=== PATIENT | male | born 1980 | race Caucasian/White ===

== ENCOUNTER 2024-03-10 23:26 | Observation (INO) | payer OTHER, SELFPAY ==
--- NOTE | ~2024-03-10 | US_ITS ---
EXAMINATION: US retroperitoneal duplex ltd DATE: 03/12/2024 12:36 INDICATION: Hypertension. TECHNIQUE: Multiple grayscale, color Doppler, and pulsed Doppler images of the kidneys and renal diamond shadia were obtained. COMPARISON: None. FINDINGS: The aorta peak systolic velocity is 82 cm/s. Right kidney measures 11.1 x 5.4 x 5.7 cm . The right re nal artery peak systolic velocity is 61 cm/s in the proximal segment, 48 cm/s in the mid segment, and 90 cm/s in the distal segment. Left kidney measures 12.3 x 6.2 x 5.7 cm. The left renal artery peak systolic velocity is 54 cm/s in the mid segment and 77 cm/s in the distal segment. IMPRESSION: 1. No Doppler evidence of renal artery stenosis. Reviewed, dictated and finalized at location A. [facility]ALER
--- NOTE | ~2024-03-10 | XR_ITS ---
Portable chest x-ray Comparison: 05/25/2014 Clinical History: Wheezing, hypertension Findings: Lungs are clear, without focal consolidation or pleural effusion. Cardiomediastinal silho uette is stable. Bones and soft tissues are unremarkable. Impression: Normal chest. Reviewed, dictated and finalized at [facility]. RVISOR OF RESEARCH Impression: Normal chest.
[2024-03-10 23:34] VITALS: BP 244/125; PULSE 100; RESP 16; TEMP 36.5; O2SAT 99
--- NOTE | 2024-03-10 23:41 | ECG_ITS ---
Test Date: 2024-03-10 23:45:06 Measurements Intervals [place] Rate: 88 P: 51 PA: 136 QRS: 38 QRSD: 93 T: 39 QT: 382 QTc: 463 Interpretive Statements SINUS RHYTHM NONSPECIFIC T-WAVE ABNORMALITY No previous ECG available for comparison Electronically Signed On 03-11-2024 12:14:19 WING COMMANDER by Juan Carlos Baker M.D.
[2024-03-11] VITALS (21 sets, daily range): BP systolic 161–215; BP diastolic 94–114; PULSE 77–123; RESP 16–20; TEMP 36.6–36.9; O2SAT 95–99; BMI 39.6
[2024-03-11 00:06] LABS: Basophils Absolute Auto 0.1 K/mm3 (0.0-0.1); Basophils Percent Auto 0.7 % (0.2-1.2); Eosinophils Absolute Auto 0.3 K/mm3 (0-0.3); Eosinophils Percent Auto 2.6 % (0-4.4); Hemoglobin 16.2 g/dL (14.0-18.0); Immature Granulocyte Absolute 0.06 K/mm3 (0.00-0.031); Immature Granulocyte Percent A 0.6 % (0-0.5); Lymphocytes Absolute Auto 5.43 K/mm3 (0.9-3.2); Lymphocytes Percent Auto 50.5 % (18.3-44.2); Mean Corpuscular HGB Conc 35.2 g/dl (32-36); Mean Corpuscular Hemoglobin 29.7 pg (26-34); Mean Corpuscular Volume 84.2 fl (80-100); Mean Platelet Volume 8.9 fl (7.4-10.4); Monocytes Percent Auto 9.1 % (2.6-8.5); Neutrophils Absolute Auto 3.9 K/mm3 (1.3-6.7); Neutrophils Percent Auto 36.5 % (45.5-73.1); Platelet Count Result 219 k/mm3 (150-375); Red Blood Count 5.46 M/mm3 (4.6-6.20); Red Cell Distribution Width 12.3 % (11.5-14.5); White Blood Count 10.8 K/mm3 (4.5-10.0)
[2024-03-11 00:20] LABS: Prothrombin Time 13.8 Seconds (11.1-14.7)
[2024-03-11 00:21] LABS: Partial Thromboplastin Time 32.9 Seconds (22.3-36.8)
--- NOTE | 2024-03-11 00:22 | ED_ITS ---
HPI - SOB/Dyspnea General Chief Complaint: Upper Respiratory Infection Stated Complaint: congestion, high blood pressure Time Seen by Provider: 03/10/24 23:41 Source: patient Mode of arrival: ambulatory Limitations: no limitations History of Present Illness HPI Narrative: This is a 43 year old male that presents to the ER for elevated blood pressure. Reports he has been ill with cold symptoms over the last week. Reports cough, congestion. Reports the last 2 nights he has felt short of breath while lying flat. He took his blood pressure and it was elevated which prompted him to be seen. He does have history of hypertension, but has not been on his blood pressure mediation for years. Denies chest pain. Related Data Allergies Allergy/AdvReac Type Severity Reaction Status Date / Time No Known Allergies Allergy Verified 03/10/24 23:28 Review of Systems 2 Review of Systems: CONSTITUTIONAL: Denies fever ENT: Reports congestion CARDIOVASCULAR: Denies chest pain, or edema. RESPIRATORY: Reports cough and dyspnea. All systems reviewed & are unremarkable except as noted in HPI and below PMFSH Past Medical History Medical History (Updated 03/11/24 @ 02:38 by Grace Somers PA-C) History of hypertension Social History Social History (Updated 03/11/24 @ 00:40 by Grace Somers PA-C) Substance use: never Exam 2 Narrative: GENERAL: Well-appearing, well-nourished, and in no acute distress. HEAD: Normocephalic, atraumatic. EYES: EOMI. ENT: Nares clear, no rhinorrhea or epistaxis. Mucous membranes moist. Oropharynx without tonsillar hypertrophy exudate or other lesions. Bilateral cerumen impaction NECK: Supple. No adenopathy or masses. CHEST: No respiratory distress. Inspiratory wheezing. No rales or rhonchi HEART: Regular rate and rhythm. No murmur heard. Normal peripheral pulses. EXTREMITIES: Normal range of motion. No edema. SKIN: Warm, dry, no rash. NEURO: No focal deficits. Alert and oriented x3. PSYCH: Normal mood and affect Course Course Emergency Course: patient updated on workup and recommendation for admission Consultations Consultation #1: Spoke with hospitalist about patient and workup who accepts admission Date: 03/11/24 Vital Signs Vital signs: Vital Signs Temperature 97.7 F 03/10/24 23:34 Pulse Rate 100 03/10/24 23:34 Respiratory Rate 16 12/19/24 23:34 Blood Pressure 244/125 H 03/10/24 23:34 Pulse Oximetry 99 03/10/24 23:34 Oxygen Delivery Room Air 03/10/24 23:34 Temperature 97.7 F 03/10/24 23:34 Pulse Rate 95 03/11/24 01:45 Respiratory Rate 18 03/11/24 01:45 Blood Pressure 208/112 H 03/11/24 01:45 Pulse Oximetry 97 03/11/24 01:45 Oxygen Delivery Room Air 03/10/24 23:34 MDM - SOB/Dyspnea MDM Narrative Medical decision making narrative: Patient presents to the emergency department for elevated blood pressure and shortness of breath. Blood pressure elevated to 240 systolic upon arrival. This has slowly down trended. Patient was given a dose of hydralazine. Blood pressure now is 180s systolic. CBC with mild leukocytosis to 10.8. Metabolic panel with mild hypokalemia, patient's potassium was replaced. Influenza, RSV and COVID screens are negative. patient updated on workup and recommendation for admission. Spoke with hospitalist about patient and workup who accepts admission Differential Diagnosis Differential diagnosis: Likely congestive heart failure, community acquired pneumonia, asthma with exacerbation and pulmonary embolism Lab Data Attestation: I reviewed the patient's lab results. 03/10/24 23:55 03/10/24 23:55 Labs: Lab Results 03/10/24 03/10/24 Range/Units 23:54 23:55 WBC 10.8 H (4.5-10.0) K/mm3 RBC 5.46 (4.6-6.20) M/mm3 Hgb 16.2 (14.0-18.0) g/dL Hct 46.0 (42.0-52.0) % MCV 84.2 (80-100) fl MCH 29.7 (26-34) pg MCHC 35.2 (32-36) g/dl RDW 12.3 (11.5-14.5) % Plt Count 219 (150-375) k/mm3 MPV 8.9 (7.4-10.4) fl Immature Gran % (Auto) 0.6 H (0-0.5) % Neut % (Auto) 36.5 L (45.5-73.1) % Lymph % (Auto) 50.5 H (18.3-44.2) % Mckinley % (Auto) 9.1 H (2.6-8.5) % Eos % (Auto) 2.6 (0-4.4) % Baso % (Auto) 0.7 (0.2-1.2) % Lymph # (Auto) 5.43 H (0.9-3.2) K/mm3 Mckinley # (Auto) 1.0 H (0.1-0.6) K/mm3 Eos # (Auto) 0.3 (0-0.3) K/mm3 Baso # (Auto) 0.1 (0.0-0.1) K/mm3 Abs Immat Gran (auto) 0.06 H (0.00-0.031) K/mm3 Absolute Neuts (auto) 3.9 (1.3-6.7) K/mm3 Absolute Nucleated RBC 0.000 (0.0-0.012) K/mm3 Nucleated RBC % 0.0 (0.0-0.2) % PT 13.8 (11.1-14.7) Seconds INR 1.0 APTT 32.9 (22.3-36.8) Seconds D-Dimer < 0.27 (<0.48) ug/mL Sodium 137 (137-145) mmol/L Potassium 3.3 L (3.4-5.0) mmol/L Chloride 101 (98-107) mmol/L Carbon Dioxide 29 (22-30) mmol/L Anion Gap 7 (4-12) mmol/L BUN 16 (9-20) mg/dL Creatinine 0.80 (0.7-1.3) mg/dL Estim Creat Clear Calc Not Reportable Estimated GFR > 60 (59 - ) Glucose 156 H (65-110) mg/dL Calcium 9.3 (8.4-10.2) mg/dL Magnesium 2.0 (1.6-2.3) mg/dL Total Bilirubin 0.9 (0.2-1.3) mg/dL AST 45 (17-59) U/L ALT 48 (6-50) U/L Alkaline Phosphatase 67 (38-126) U/L Troponin I < 0.012 (0.000-0.034) ng/mL NT-Pro-B Natriuret Pep 20 (19.9-100) pg/mL Total Protein 9.0 H (6.3-8.2) g/dL Albumin 4.7 (3.5-5.1) g/dL Lipase 97 (23-300) U/L Influenza A (RT-PCR) Negative (Negative) Influenza B (RT-PCR) Negative (Negative) RSV (RT-PCR) Negative (Negative) SARS-CoV-2 RNA (RT-PCR) Negative (Negative) Imaging Data My impression: Chest x-ray: Cardiomegaly ECG Data EKG #1: ECG completion date: 03/11/24 EKG Interpretation: normal rate, sinus rhythm, no ST changes and normal QT Critical Care Time Critical Care Time Critical Care Time: Yes Total Critical Care Time: 35 Discharge Plan Discharge Clinical Impression: Hypertensive urgency, Hypokalemia Patient Disposition: Still a Patient Condition: Serious Patient Language: German Follow-up/Referrals: PHYSICIAN,LEAD GENERATION MARKETING MANAGER [Primary Care Provider] -
[2024-03-11] MEDS: IPRATROPIUM 0.5 MG/ALBUTEROL SULFATE 2.5 MG AMPUL.NEB 3 ML INHALATION (00:40)
[2024-03-11 00:49] LABS: Influenza A QL RT-PCR Negative (Negative); Influenza B QL RT-PCR Negative (Negative); RSV RNA, RT-PCR Negative (Negative); SARS-CoV-2 RNA PCR Negative (Negative)
[2024-03-11] MEDS: predniSONE 20 MG TABLET 60 MG PO (00:56)
[2024-03-11 01:00] LABS: Alanine Aminotransferase 48 U/L (6-50); Albumin Level 4.7 g/dL (3.5-5.1); Alkaline Phosphatase 67 U/L (38-126); Anion Gap 7 mmol/L (4-12); Aspartate Amino Transferase 45 U/L (17-59); Bilirubin,Total 0.9 mg/dL (0.2-1.3); Blood Urea Nitrogen 16 mg/dL (9-20); Calcium 9.3 mg/dL (8.4-10.2); Carbon Dioxide 29 mmol/L (22-30); Chloride 101 mmol/L (98-107); Estimated Glomerular Filt Rate > 60; Glucose 156 mg/dL (65-110); Lipase 97 U/L (23-300); Potassium 3.3 mmol/L (3.4-5.0); Sodium 137 mmol/L (137-145)
[2024-03-11 01:11] LABS: NT Pro B Type Natriuretic Pept 20 pg/mL (19.9-100); Troponin I < 0.012 ng/mL (0.000-0.034)
[2024-03-11 01:18] LABS: D Dimer < 0.27 ug/mL (<0.48)
[2024-03-11] MEDS: POTASSIUM CHLORIDE 20 MEQ ER TABLET 40 MEQ PO (01:42)
[2024-03-11] MEDS: hydrALAZINE HCL 20 MG/ML VIAL 10 MG IV PUSH ×3 (01:43→17:20)
--- NOTE | 2024-03-11 02:43 | ECG_ITS ---
Test Date: 2024-03-11 02:45:44 Measurements Intervals [place] Rate: 95 P: 38 ID: 140 QRS: 43 QRSD: 89 T: 28 QT: 371 QTc: 467 Interpretive Statements SINUS RHYTHM NONSPECIFIC T-WAVE ABNORMALITY Compared to ECG 03/10/2024 23:45:06 No significant changes Electronically Signed On 03-11-2024 12:20:07 DOUGHNUT MACHINE OPERATOR HELPER by Juan Carlos Baker M.D.
[2024-03-11 03:07] LABS: Troponin I < 0.012 ng/mL (0.000-0.034)
--- NOTE | 2024-03-11 05:08 | ADMGEN ---
This patient, Steven Elmore, was admitted to IMU Room 211-01. Patient/family oriented to hospital policies and general routines including ID bracelet, bed and alarms, visiting hours, pain management, procedures, bathroom and other care routines, personal items, smoking policy, room service/diet, and visiting hours. Information on how to activate the Rapid Response Team has been discussed. Patient/Family are encouraged to report perceived risks to care and to ask questions if they do not understand what they are told or what they should do.
[2024-03-11 07:02] LABS: Troponin I < 0.012 ng/mL (0.000-0.034)
[2024-03-11] MEDS: lisinopriL 20 MG TABLET PO (08:22)
--- NOTE | 2024-03-11 09:16 | PM.IMHP ---
H&P: HPI History of Present Illness Date/Time: 03/11/24 09:16 Chief Complaint: upper resp infection, sob, high blood pressure Narrative: 43 year old male that presents to the ER for elevated blood pressure. Reports he has been ill with cold symptoms over the last week. Reports cough, congestion. Reports the last 2 nights he has felt short of breath while lying flat. He took his blood pressure and it was elevated which prompted him to be seen. He does have history of hypertension, but has not been on his blood pressure mediation for years. Denies chest pain. In ed: his systolic BP was 240. Patient was given a dose of hydralazine. Blood pressure now is 180s systolic. CBC with mild leukocytosis to 10.8. Metabolic panel with mild hypokalemia, patient's potassium was replaced. Influenza, RSV and COVID screens are negative. EKG was completed in ED. Chest xray-unremarkable. 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 Walk occasionally but nothing consistent. Drinks alcohol-very seldom. Eats out on occasion but tries to cook more at home, doesnot add salt when he cooks. Doesnot smoke, doesnot do any other drugs. Both parents have HTN, mother had medullary thyroid ca- so pt would npot be a candidate for GLP1 if prediabetic/diabetic. His previous pcp left [facility] and he didot have follow up in a while. He used to take HCTZ while back and once covid happed, lost touch with his pcp and ran out of his refills, so quit taking medication. reports occASIONAL HEADACHES AND BLURRY VISION. He gets anxiouys easily. Review of Systems Review of Systems: All systems reviewed & are unremarkable except as noted in HPI and below [facility] Past Medical History Medical History (Updated 03/11/24 @ 15:37 by Nicole Cornejo APRN) History of hypertension Social History Social History (Updated 03/11/24 @ 00:40 by Grace Somers PA-C) Smoking status: Never smoker Alcohol intake: never Substance use: never Substance use type: does not use Do You Feel Safe in your Home?: Yes Lack of Transportation: No Lack of Food: Never True Current Housing: I Have Housing Concerned About Future Housing: No Difficulty Paying Gas/Electric Bills: No Difficulty Paying for Meds: No Currently Unemployed: No Education: Bachelor's Degree Difficulty w/ Childcare or Family Care: No Spiritual care concerns: No Meds Home Medications and Allergies Home Medications ?Medication ?Instructions ?Recorded ?Confirmed ?Type No Home Medications 03/11/24 03/11/24 History Allergies Allergy/AdvReac Type Severity Reaction Status Date / Time No Known Allergies Allergy Verified 03/10/24 23:28 Vital Signs Vital Signs - 24 hr 03/10/24 23:34 03/11/24 00:07 03/11/24 00:40 Temperature 97.7 F Pulse Rate 100 93 86 Respiratory Rate 16 20 18 Blood Pressure 244/125 H 215/108 H Pulse Oximetry 99 97 Oxygen Delivery Room Air 03/11/24 00:46 03/11/24 01:45 03/11/24 04:07 Temperature Pulse Rate 94 95 84 Respiratory Rate 20 18 16 Blood Pressure 208/112 H 166/94 H Pulse Oximetry 97 95 Oxygen Delivery 03/11/24 04:08 03/11/24 04:19 03/11/24 05:10 Temperature Pulse Rate 87 95 Respiratory Rate 16 Blood Pressure Pulse Oximetry 96 96 Oxygen Delivery Room Air 03/11/24 05:11 03/11/24 05:15 03/11/24 08:00 Temperature 98.1 F 98.1 F Pulse Rate 92 77 97 Respiratory Rate 16 20 18 Blood Pressure 188/114 H 214/108 H Pulse Oximetry 96 97 99 Oxygen Delivery Room Air Exam Const: General: comfortable Eyes: General: appearance normal, both eyes and all related structures Resp: Effort & Inspection: normal respiratory effort Cardio: Rate: regular rate Rhythm: regular rhythm GI: GI Palp: Yes Soft to palpation Auscultation: normal bowel sounds Skin: General skin exam: normal color Neuro: Speech: normal speech Motor exam (neuro): 5/5 motor strength present throughout Sensory Exam: normal sensation Extrem: General: normal to inspection Psych: Affect: Anxious affect present H&P: Results Labs Labs: Short CBC 03/10/24 Range/Units 23:55 WBC 10.8 H (4.5-10.0) K/mm3 Hgb 16.2 (14.0-18.0) g/dL Hct 46.0 (42.0-52.0) % Plt Count 219 (150-375) k/mm3 [facility] 03/10/24 23:55 Sodium 137 Potassium 3.3 L Chloride 101 Carbon Dioxide 29 BUN 16 Creatinine 0.80 Glucose 156 H Calcium 9.3 Cardiac Enzymes 03/10/24 03/11/24 03/11/24 Range/Units 23:55 02:39 05:54 Troponin I < 0.012 < 0.012 < 0.012 (0.000-0.034) ng/mL Liver Function 03/10/24 Range/Units 23:55 Total Bilirubin 0.9 (0.2-1.3) mg/dL AST 45 (17-59) U/L ALT 48 (6-50) U/L Alkaline Phosphatase 67 (38-126) U/L Albumin 4.7 (3.5-5.1) g/dL Assessment and Plan Assessment and plan (1) Hypertensive urgency: Code(s): I16.0 - Hypertensive urgency Status: Acute Assessment and Plan: primary vs secondaty htn- unsure if he had a good workup for htn previously was taking hctz but stopped during cov2021 was started on lisinopril 20 mg daily has PRN iv hydralazine will order renal ultrasound to ekg was done TSH, uric acid, lipid profile, Hga1c ordered will need ophthalmology f/u as well (2) JOSE MANUEL (generalized anxiety disorder): Code(s): F41.1 - Generalized anxiety disorder Status: Acute Assessment and Plan: will start with atarax prn for now will need to f/u with pcp as an outpt (3) Hypokalemia: Code(s): E87.6 - Hypokalemia Status: Acute Assessment and Plan: monitor replaced if needed (4) Obese: Code(s): E66.9 - Obesity, unspecified Status: Acute Assessment and Plan: will order lipid profile and hga1c ti rule out metabolic syndrome discuss the need to lose weight Quality VTE Prophylaxis VTE prophylaxis: pharmacologic ordered Hospitalist MIPS Advance Care Plan I have confirmed that the patient's Advanced Care Plan is present, code status is documented, or surrogate decision maker is listed in patient medical record.: Yes Medication Reconciliation I have utilized all available resources to obtain, update and review the patients current medications (includes all prescriptions, OTC, herbals, cannabis, and nutritional supplements).: Yes
[2024-03-11] MEDS: hydrOXYzine HCL 25 MG TABLET 50 MG PO (14:44)
[2024-03-12] VITALS (9 sets, daily range): BP systolic 173–192; BP diastolic 93–108; PULSE 84–100; RESP 18–20; TEMP 36.6–37.2; O2SAT 96–98
[2024-03-12 07:08] LABS: Anion Gap 4 mmol/L (4-12); Blood Urea Nitrogen 13 mg/dL (9-20); Calcium 9.1 mg/dL (8.4-10.2); Carbon Dioxide 29 mmol/L (22-30); Chloride 103 mmol/L (98-107); Cholesterol 201 mg/dL (0-200); Estimated CRCL calculation 113 ml/min; Estimated Glomerular Filt Rate > 60; Glucose 146 mg/dL (65-110); HDL Direct 34 mg/dL; Sodium 136 mmol/L (137-145); Triglycerides 178 mg/dL (<150); Uric Acid 5.9 mg/dL (3.5-8.5)
[2024-03-12 07:18] LABS: LDL Cholesterol Direct 118 mg/dL
[2024-03-12 08:00] LABS: Hemoglobin A1C 6.8 % (<5.7)
[2024-03-12 09:03] LABS: Basophils Absolute Auto 0.1 K/mm3 (0.0-0.1); Basophils Percent Auto 0.6 % (0.2-1.2); Eosinophils Absolute Auto 0.1 K/mm3 (0-0.3); Eosinophils Percent Auto 0.9 % (0-4.4); Hematocrit 47.3 % (42.0-52.0); Hemoglobin 16.5 g/dL (14.0-18.0); Immature Granulocyte Absolute 0.08 K/mm3 (0.00-0.031); Immature Granulocyte Percent A 0.6 % (0-0.5); Lymphocytes Absolute Auto 4.68 K/mm3 (0.9-3.2); Mean Corpuscular HGB Conc 34.9 g/dl (32-36); Mean Corpuscular Hemoglobin 30.4 pg (26-34); Mean Corpuscular Volume 87.1 fl (80-100); Mean Platelet Volume 9.2 fl (7.4-10.4); Monocytes Absolute Auto 1.4 K/mm3 (0.1-0.6); Monocytes Percent Auto 10.9 % (2.6-8.5); Neutrophils Absolute Auto 6.3 K/mm3 (1.3-6.7); Platelet Count Result 243 k/mm3 (150-375); Red Blood Count 5.43 M/mm3 (4.6-6.20); Red Cell Distribution Width 12.9 % (11.5-14.5); White Blood Count 12.6 K/mm3 (4.5-10.0)
[2024-03-12] MEDS: lisinopriL 20 MG TABLET PO (09:03)
[2024-03-12] MEDS: ENOXAPARIN 40 MG/0.4 ML SYRINGE SUB-Q (09:09)
--- NOTE | 2024-03-12 13:18 | PM.DS ---
DS: Admitting Diagnosis Discharge Date 03/12 Admitting Diagnosis high bp DS: Discharge Diagnosis Discharge Diagnosis (1) Hypertensive urgency: Code(s): I16.0 - Hypertensive urgency Status: Acute (2) JOSE MANUEL (generalized anxiety disorder): Code(s): F41.1 - Generalized anxiety disorder Status: Acute (3) Hypokalemia: Code(s): E87.6 - Hypokalemia Status: Acute (4) Obese: Code(s): E66.9 - Obesity, unspecified Status: Acute (5) Diabetes: Code(s): E11.9 - Type 2 diabetes mellitus without complications Status: Acute (6) Metabolic syndrome: Code(s): E88.810 - Metabolic syndrome Status: Acute DS: Summary Hospital Course Hospital Course: upper resp infection, sob, high blood pressure Narrative: 43 year old male that presents to the ER for elevated blood pressure. Reports he has been ill with cold symptoms over the last week. Reports cough, congestion. Reports the last 2 nights he has felt short of breath while lying flat. He took his blood pressure and it was elevated which prompted him to be seen. He does have history of hypertension, but has not been on his blood pressure mediation for years. Denies chest pain. In ed: his systolic BP was 240. Patient was given a dose of hydralazine. Blood pressure now is 180s systolic. CBC with mild leukocytosis to 10.8. Metabolic panel with mild hypokalemia, patient's potassium was replaced. Influenza, RSV and COVID screens are negative. EKG was completed in ED. Chest xray-unremarkable. # HTN primary vs secondaty htn- unsure if he had a good workup for htn previously was taking hctz but stopped during covid 2021 was started on lisinopril 20 mg daily has PRN iv hydralazine will order renal ultrasound to ekg was done TSH, uric acid, lipid profile, Hga1c ordered will need ophthalmology f/u as well Pt was started on lisinopril 20 mg. He will very likely need to go up on a dose- we discuss the need to monitor BP daily and keep log. UNtill he is established with PCP- he was instructed to go up on dose if BP remain high. WE discussed diet changes- avoid fried food, watch salt intake, add purposeful physical activity- work up to 150 min a week to start with. renal ultrasound was completed- pending reading. # diabetes hga1c 6.8 will start on metformin er 500 mg daily x 1 week and the bid. Side effects discussed. he will need to get hga1c and kidney function recheck in 3 months, as well as have ophthalmology yearly exam. we discussed primary prevention- and he is agreeable to start statin- about a week or two after metformin. # metabolic syndrome # obesity # BMI 41 discussed weight loss- need to lose at least 10% of body weight to begin with prioritize lean protein, fruits/veggies work up to 150 min a week of purposeful physical activity to start with- walking is a great start. Status at Discharge Functional status at discharge: independent ambulation Overall status at discharge: patient is back to baseline Time Spent with Patient Time attestation: Total time spent providing and/or coordinating discharge services: Time spent: Greater than 30 minutes Exam Const: General: comfortable Eyes: General: appearance normal, both eyes and all related structures Resp: Effort & Inspection: normal respiratory effort Cardio: Rate: regular rate Rhythm: regular rhythm GI: Auscultation: normal bowel sounds Skin: General skin exam: normal color Neuro: Speech: normal speech Motor exam (neuro): 5/5 motor strength present throughout Sensory Exam: normal sensation Extrem: General: normal to inspection Psych: Affect: Anxious affect present DS: Data Data Completed and Pending Labs on day of discharge: Labs from last 24 hours 03/12/24 06:33 WBC 12.6 H RBC 5.43 Hgb 16.5 Hct 47.3 MCV 87.1 MCH 30.4 MCHC 34.9 RDW 12.9 Plt Count 243 MPV 9.2 Immature Gran % (Auto) 0.6 H Neut % (Auto) 50.0 Lymph % (Auto) 37.0 Reeves % (Auto) 10.9 H Eos % (Auto) 0.9 Baso % (Auto) 0.6 Lymph # (Auto) 4.68 H Reeves # (Auto) 1.4 H Eos # (Auto) 0.1 Baso # (Auto) 0.1 Abs Immat Gran (auto) 0.08 H Absolute Neuts (auto) 6.3 Absolute Nucleated RBC 0.000 Nucleated RBC % 0.0 Sodium 136 L Potassium 4.0 Chloride 103 Carbon Dioxide 29 Anion Gap 4 BUN 13 Creatinine 1.00 Estim Creat Clear Calc 113 Estimated GFR > 60 Glucose 146 H Hemoglobin A1c 6.8 H Uric Acid 5.9 Calcium 9.1 Triglycerides 178 H Cholesterol 201 H LDL Cholesterol Direct 118 HDL Direct 34 TSH (Reflex) 2.600 Discharge Plan Discharge Attending physician on discharge: Candelario Garcia Discharging Clinician: Nicole Cornejo Patient Disposition: Home, Self-Care Activity: may shower Diet: as tolerated and diabetic Discharge Instructions: You were admitted for HTN. you were started on lisinopril 20 mg. very likely need to go up on a dose- we discuss the need to monitor BP daily and keep log. Untill you are established with PCP- you can go up on dose if BP remain high. Max dose for lisinopril is 40 mg daily- i will write you a script for 40 mg daily to begin with, so you will have enough medication until you are established with your new PCP. WE discussed diet changes- avoid fried food, watch salt intake, add purposeful physical activity- work up to 150 min a week to start with. LIMIT COFFEE, SODA, ENERGY DRINKS If your renal ultrasound show anything abnormal- i will call and let you know. # diabetes hga1c 6.8 will start on metformin er 500 mg daily x 1 week and then twice a dayd. Side effects discussed-abd pain/discomfort, bloating, diarrhea. You will need to get hga1c and kidney function recheck in 3 months, as well as have ophthalmology yearly exam. we discussed primary prevention- and you were agreeable to start statin- about a week or two after metformin. I will send a script for that as well. Possible side effects for statin is muscle pain but typically well tolerated. # metabolic syndrome # obesity # BMI 41 discussed weight loss- need to lose at least 10% of body weight to begin with prioritize lean protein, fruits/veggies work up to 150 min a week of exercise to start with- walking is a great start Patient Instructions: Antibiotic Form, Upper Respiratory Infection (GEN), Hypertensive Crisis (GEN), Hypertension (GEN) Patient Language: Scottish Stand Alone Forms: General Discharge Information Follow-up/Referrals: PHYSICIAN,INSTALLMENT ACCOUNT CHECKER [Primary Care Provider] - 2 Weeks (follow up as soon as possible will need repeat hga1c, kidney function in 2-3 months.) Discharge Medications: New lisinopril 20 mg Tablet 40 mg PO QAM Qty: 90 0RF metformin 500 mg tablet extended release 24 hr 500 mg PO BID Qty: 90 0RF Rx Instructions: take 500 mg daily for a week, then increase to 500 mg twice a day atorvastatin [Lipitor] 20 mg tablet 20 mg PO DAILY Qty: 90 0RF hydroxyzine HCl 50 mg tablet 50 mg PO BID PRN (Reason: anxiety) Qty: 60 0RF Date of admission: 03/11/24 02:31 Primary Care Provider: PHYSICIAN,INSTALLMENT ACCOUNT CHECKER Admitting Provider: Olivia Pacheco Attending physician on admission: Olivia Pacheco Condition: Stable Quality VTE Prophylaxis VTE prophylaxis: pharmacologic ordered Hospitalist MIPS Heart Failure (Exclusion) Patient has history of Heart Transplant or Left Ventricular Assistive Device?: No IF YES, STOP HERE Heart Failure (Qualifier) Patient has current or prior documentation of LVEF less than or equal to 40%, or mod/servere depressed LVSF?: No IF NO, STOP HERE
== END 2024-03-12 14:58 | disposition home or self-care (01) ==
LOC: ANHED 03-11 03:45 → ANHIMU 03-11 05:10
PROVIDERS: Emergency Medicine; Nurse Practitioner; Admitting Provider Internal Medicine; Emergency Provider Physician Assistant; Visit Provider General Practice
DX: I16.0 Hypertensive urgency (principal); I10 Essential (primary) hypertension; F41.1 Generalized anxiety disorder; E87.6 Hypokalemia; E11.9 Type 2 diabetes mellitus without complications; E88.810 Metabolic syndrome; E66.9 Obesity, unspecified; Z68.41 Body mass index [BMI] 40.0-44.9, adult; Z20.822 Contact with and (suspected) exposure to COVID-19; Z82.49 Family history of ischemic heart disease and other diseases of the circulatory system; Z80.8 Family history of malignant neoplasm of other organs or systems
CPT/HCPCS: 36415; 71045; 80048; 80053; 80061; 83036; 83690; 83735; 83880; 84443; 84484; 84550; 85025; 85380; 85610; 85730; 87637; 93005; 93976; 94640; 96372; 96374; 96376; 99285; A9270; G0378; J0360; J1650; J7512

== ENCOUNTER 2025-03-15 00:13 | Day surgery (SDC) | payer OTHER, SELFPAY ==
[2025-02-24 14:50] VITALS: BMI 35.2
--- OUTSIDE RECORDS SUMMARY | 2025-03-15 00:17 | XMS_ITS | Clinical Summary ---
Author Organization [facility] Address [facility] [place] [address] Care Team Providers Care Broodmare Barn Groom Name Role Phone Timo Ace MD Primary Care Provider [phone] Allergies No known active allergies Medications Lancets MiscIndications:Typ e 2 diabetes mellitus without complication, with long-term current use of insulin ([facility]),Primary hypertension 1 Device by Does not apply route 2 (two) times a day. 100 each 3 5 Active hydrOXYzine (ATARAX) 50 MG tabletIndications:A nxiety Take 1 tablet (50 mg total) by mouth 2 (two) times daily as needed for Anxiety. 180 tablet 1 5 Active SOFTCLIX LANCETS MiscIndications:Typ e 2 diabetes mellitus without complication, with long-term current use of insulin ([facility] HHS/HCC) 1 Device by Does not apply route daily. 100 each 3 5 Active lisinopril (PRINIVIL) 40 MG tabletIndications:P rimary hypertension Take 1 tablet (40 mg total) by mouth daily. 90 tablet 3 5 Active Glucose Blood (FREESTYLE LITE) test stripIndications:Ty pe 2 diabetes mellitus without complication, with long-term current use of insulin (CMS/HCC HHS/HCC) 1 strip by Other route daily. 100 strip 3 5 Active Lancets (FREESTYLE) lancetsIndications: Type 2 diabetes mellitus without complication, with long-term current use of insulin ([facility]/HCC) 1 each by Other route daily. 100 each 3 5 Active atorvastatin (LIPITOR) 20 MG tabletIndications:M ixed hyperlipidemia TAKE 1 TABLET DAILY 90 tablet 1 5 Active metFORMIN ER (GLUCOPHAGE-XR) 500 MG 24 hr tabletIndications:T ype 2 diabetes mellitus without complication, with long-term current use of insulin (CMS/HCC HHS/HCC) TAKE 1 TABLET TWICE A DAY 180 tablet 1 5 Active amLODIPine (NORVASC) 5 MG tabletIndications:P rimary hypertension Take 1 tablet (5 mg total) by mouth daily. 90 tablet 3 5 Active Active Problems Problem Noted Date Diagnosed Date Obstructive sleep apnea hypopnea, mild Mixed hyperlipidemia 04/03/2024 Hypertension 03/31/2024 Type 2 diabetes mellitus wit hout complication, with long-term current use of insulin 03/31/2024 Encounters Date Type Department Care Team Description 01/30/2025 8:20 AM THERAPEUTIC STRATEGY LEAD Office Visit [facility] Family & Internal [address] [phone] Rebeca Bhat DO Hypertension (Pt presents today for 1 mo f/u for HTN meds. States that his BP has slowly going back down slowly. ) 01/30/2025 Travel 01/06/2025 Scan [employer] HE[facility] INFO SRVCS Scanned, [facility] 01/02/2025 10:40 AM CDT Office Visit [facility] Family Internal [address] [phone] Timo Ace MD Clardy, Emma C, DO Follow Up; Hypertension; Diabetes; Hyperlipidemia; Obstructive Sleep Apnea 01/02/2025 Travel 12/19/2024 Results Follow-Up [facility] & Internal [address] [address] Timo Ace MD LIPID PANEL, COMPREHENSIVE METABOLIC PANEL, CK (CPK), HEMOGLOBIN, GLYCOSYLATED from Last 3 Months Immunizations Immunization Administration Dates Next Due Fluzone (IIV3, Trivalent, 0.5 ML Prefilled Syrin ge) 01/02/2025 Hepatitis A (Havrix 1440 El.U) 11/11/1999,1999 Influenza (Generic) 01/23/2024 Family History Medical History Relation Comments CHF Maternal Grandmother Diabetes Mother Hypertension Mother Stroke Mother Relation Status Comments Maternal Grandmother Mother Social History Tobacco Use Types Packs/Day Years Used Date Smoking Tobacco: Never Smokeless Tobacco: Never Tobacco Cessation:Counseling Given: Yes Alcohol Use Standard Drinks/Week Comments Never 0 (1 standard drink = 0.6 oz pur e alcohol) PHQ-2 Answer Date Recorded Patient Health Questionnaire-2 Score 0 08/16/2024 Sex and Gender Information Value Date Recorded Sex Assigned at Male 04/11/2024 10:20 AM THERAPEUTIC STRATEGY LEAD Legal Sex Male 11:42 AM THERAPEUTIC STRATEGY LEAD Gender Identity Male 01/30/2025 8:20 AM THERAPEUTIC STRATEGY LEAD Sexual Orientation Not on file Last Filed Vital Signs Vital Sign Reading Time Taken Comments Blood Pressure 128/76 01/30/2025 8:20 AM THERAPEUTIC STRATEGY LEAD Pulse 88 01/30/2025 8:20 AM THERAPEUTIC STRATEGY LEAD Temperature 37.2 C (99 F) 01/30/2025 8:20 AM THERAPEUTIC STRATEGY LEAD Respiratory Rate 16 01/30/2025 8:20 AM THERAPEUTIC STRATEGY LEAD Oxygen Saturation 99% 01/30/2025 8:20 AM THERAPEUTIC STRATEGY LEAD Inhaled Oxygen Concentration - - Weight 113.4 kg (250 lb) 01/30/2025 8:20 AM THERAPEUTIC STRATEGY LEAD Height 174.6 cm (5' 8.75) 01/30/2025 8:20 AM CS T Body Mass Index 37.19 01/30/2025 8:20 AM THERAPEUTIC STRATEGY LEAD Plan of Treatment Upcoming Encounters Date Type Department Care Team (Late st Contact Info) Description 08/30/2025 10:00 AM CDT Office Visit [facility] [address] [place] [address] Timo Ace MD [facility] [place] [address] Health Maintenance Due Date Last Done Comments Colorectal Cancer Screening Colonoscopy (10 Years) 1980 Kidney Health Evaluation 1980 Annual Physical 08/26/1982 Diabetes: Retinopathy Eye Exam 08/26/1997 Hepatitis C 08/26/1997 DTaP, Tdap and Td Vaccines (1 - Tdap) 08/26/1998 Hepatitis B Vaccines (1 of 3 - 19+ 3-dose series) 08/26/1998 Pneumococcal Vaccine: Pediatrics (0 to 5 Years) and At-Risk Patients (6 to 49 Years) (1 of 2 - PCV) 08/26/1998 HPV Vaccines (1 - 3-dose SCDM series) 08/26/2006 COVID-19 Vaccine ( season) 2024 02/01/2024, 01/20/2023, 12/27/2021, Additional history exists Hemoglobin A1C 06/16/2025 12/17/2024, 07/22, 05/09/2024 Lipid Panel 12/17/2025 12/17/2024 Hepatitis A Vaccines Aged Out 11/11/1999, 04/09/19 00 No longer eligible based on patient's age to complete this topic PHQ-2 (Physician [place]) Completed 08/16/2024 Influenza Adult Completed 01/02/2025, 01/23/2024 Meningococcal B Vaccine Aged Out No l onger eligible based on patient's age to complete this topic Meningococcal Vaccine Aged Out No elan david eligible based on patient's age to complete this topic RSV Immunizations Under 20 Months Aged Out No longer eligible based on patient's age to complete this topic Procedures Procedure Name Priority Date/Time Associated Diagnosis Comments HEMOGLOBIN, GLYCOSYLATED Routine 12/17/2024 9:43 AM CDT Type 2 diabetes mellitus without complication, with long-term current use of insulin ([facility]) Primary hypertension CK (CPK) Routine 12/17/2024 9:43 AM CDT Type 2 diabetes mellitus without complication, with long-term current use of insulin ([facility]) Primary hypertension COMPREHENSIVE METABOLIC PANEL Routine 12/17/2024 9:43 AM CDT Type 2 diabetes mellitus without complication, with long-term current use of insulin ([facility]) Primary hypertension LIPID PANEL Routine 12/17/2024 9:43 AM CDT Type 2 diabetes mellitus without complication, with long-term current use of insulin ([facility]) Primary hypertension from Last 3 Months Results * HEMOGLOBIN, GLYCOSYLATED (12/17/2024 9:43 AM CDT) Pathologist [facility] HGB A1C 5.4 <5.7 % of total Hgb [facility] [employer] Comment: For the purpose of screening for the presence of diabetes: <5.7% Consistent with the absence of diabetes 5.7-6.4% Consistent with increased risk for diabetes (prediabetes) > or =6.5% Consistent with diabetes This assay result is consistent with a decreased risk of diabetes. Currently, no consensus exists regarding use of hemoglobin A1c for diagnosis of diabetes in children. According to [place] Diabetes Association (ADA) guidelines, hemoglobin A1c <7.0% represents optimal control in non- diabetic patients. Different metrics may apply to specific patient populations. Standards of Medical Care in Diabetes(ADA). 12/17/2024 9:43 AM CDT 12/17/2024 9:43 AM CDT Narrative [facility] - 12/18/2024 5:49 AM CDT FASTING:YES FASTING: YES Resulting Agency Comment Performing Organization Information: Site ID: [id number] Name: [facility] Address: [facility] [place] [address] Director: Viola Sheehan Timo Ace MD LABORATORY Final Result [facility] [employer] [address], * (ABNORMAL) COMPREHENSIVE METABOLIC PANEL (12/17/2024 9:43 AM CDT) [facility] GLUCOSE 91 65 - 99 mg/dL [facility] Comment: Fasting reference interval BUN 15 7 - 25 mg/dL [facility] CREATININE S/P/B 0.83 0.60 - 1.29 mg/dL [facility] GFR ESTIMATE 110 > OR = 60 mL/min/1. 73m2 [facility] BUN CREATININE RATIO SEE NOTE: (calc) [facility] Comment: Not Reported: BUN and Creatinine are within reference range. SODIUM S/P/B 138 135 - 146 mmol/L [facility] POTASSIUM S/P/B 4.1 3.5 - 5.3 mmol/L [facility] CHLORIDE S/P/B 102 98 - 110 mmol/L [facility] CO2 29 20 - 32 mmol/L [facility] CALCIUM S/P/B 9.9 8.6 - 10.3 mg/dL [facility] TOTAL PROTEIN S/P/B 7.4 6.1 - 8.1 g/dL [facility] ALBUMIN S/P/B 5.0 3.6 - 5.1 g/dL [facility] GLOBULIN 2.4 1.9 - 3.7 g/dL (calc) [facility] ALBUMIN/GLOBULI N RATIO 2.1 1.0 - 2.5 (calc) [facility] BILIRUBIN TOTAL S/P/B 1.4(H) 0.2 - 1.2 mg/dL [facility] [employer] [facility] ALKALINE PHOSPHATASE S/P/B 42 36 - 130 U/L [facility] AST 21 10 - 40 U/L [facility] ALT 22 9 - 46 U/L [employer] [facility] 12/17/2024 9:43 AM CDT 12/17/2024 9:43 AM CDT Narrative [facility] GI GARCIA ORDERS - 12/18/2024 5:49 AM CDT FASTING:YES FASTING: YES Resulting Agency Comment Performing Organization Information: Site ID: [id number] Name: [facility] Address: [address] [place] [phone] Director: Viola Sheehan MD Timo Ace MD LABORATORY Final Result [facility] [address] [address], [place] * (ABNORMAL) LIPID PANEL (12/17/2024 9:43 AM CDT) CHOLESTEROL 109 <200 mg/dL [facility] HDL 38(L) > OR = 40 mg/dL [facility] TRIGLYCERIDES 125 <150 mg/dL [employer] LDL (CALCULATED) 50 mg/dL (calc) [employer] [facility] Comment: Reference range: <100 Desirable range <100 mg/dL for primary prevention; <70 mg/dL for patients with CHD or diabetic patients with > or = 2 CHD risk factors. LDL-C is now calculated using the Augustus calculation, which is a validated novel method providing better accuracy than the Friedewald equation in the estimation of LDL-C. Herbert HIGGINS et al. RAISA. 2013;310(19): 3497-9388 (http://education.Diagnostic Photonics/faq/UBI384) CHOL/HDL RATIO 2.9 <5.0 (calc) [facility] [employer] [facility] NON HDL CHOLESTEROL 71 <130 mg/dL (calc) [facility] Comment: For patients with diabetes plus 1 major ASCVD risk factor, treating to a non-HDL-C goal of <100 mg/dL (LDL-C of <70 mg/dL) is considered a therapeutic option. 12/17/2024 9:43 AM CDT 12/17/2024 9:43 AM CDT Narrative [employer] [facility] - 12/18/2024 5:49 AM CDT FASTING:YES FASTING: YES Resulting Agency Comment Performing Organization Information: Site ID: [id number] Name: [facility] Address: [address] [place] [id number] Director: Viola Sheehan MD Timo Ace MD LABORATORY Final Result [facility] [employer] - [facility] [id number] [place] [id number], * CK (CPK) (12/17/2024 9:43 AM CDT) TOTAL CK 138 26 - 366 U/L [facility] 12/17/2024 9:43 AM CDT 12/17/2024 9:43 AM CDT Narrative [employer] ORDERS - 12/18/2024 5:49 AM CDT FASTING:YES FASTING: YES Resulting Agency Comment Performing Organization Information: Site ID: [id number] Name: [facility] Address: [address] [place] [phone] Director: Viola Sheehan MD us Timo Ace MD LABORATORY Final Result [facility] [id number] [id number], [place] from Last 3 Months Insurance [facility] Care Teams Broodmare Barn Groom Relationship Specialty Start Date End Date Timo Ace MD [address] [place] [id number] PCP - General 03/28/24
--- OUTSIDE RECORDS SUMMARY | 2025-03-15 00:17 | XMS_ITS | Encounter Summary ---
Author Organization [facility] Address [address] [place] [id number] Care Team Providers Care Biologist Aide Name Role Phone Timo Ace MD Primary Care Provider [phone] Encounter Details Date Type Department Care Team (Late st Contact Info) Description 05/02/2024 [employer] Message Enc [facility] Family & Internal [address] [phone] [facility] Provider Sleep apnea results Social History Tobacco Use Types Packs/Day Years Used Date Smoking Tobacco: Never Smokeless Tobacco: Never Alcohol Use Standard Drinks/Week Comments Never 0 (1 standard drink = 0.6 oz pur e alcohol) Sex and Gender Information Value Date Recorded Sex Assigned at Male 04/11/2024 10:20 AM WIRE PULLER Legal Sex Male 11:42 AM WIRE PULLER Gender Identity Male 01/30/2025 8:20 AM WIRE PULLER Sexual Orientation Not on file documented as of this encounter Plan of Treatment Upcoming Encounters Date Type Department Care Team (Late st Contact Info) Description 08/30/2025 10:00 AM CDT Office Visit [facility] Family & Internal [address] [phone] Timo Ace MD [address] [place] [phone] documented as of this encounter Visit Diagnoses Not on filedocumented in this encounter Additional Health Concerns Infection Onset Date Last Indicated Resolved Time COVID-19 Rule Out 05/09/2024 05/09/2024 05/09/2024 9:51 AM WIRE PULLER documented as of this encounter Care Teams Biologist Aide Relationship Specialty Start Date End Date Timo Ace MD [address] [place] [id number] PCP - General 03/28/24 documented as of this encounter
[2025-03-15 06:47] VITALS: BP 134/91; PULSE 78; RESP 20; TEMP 36.4; O2SAT 99
[2025-03-15] MEDS: LACTATED RINGERS 1,000 ML 150 ML IV CONT (06:57)
--- NOTE | 2025-03-15 07:15 | P.PNAN_ITS ---
Anes - Initial Pre Proc Eval Procedure: Operation Date: 03/15/25 08:00 Proposed Procedures p Screening Colonoscopy - Moody Patel MD Date/Time: 03/15/25 07:15 Surgeon: Moody Patel MD Pre Op Diagnosis: screening Patient Data Age: 44 Gender: M Height: 1.78 m Weight: 116.7 kg Last Vital Signs Temp 36.4 C 03/15/25 06:47 Pulse 78 03/15/25 06:47 Resp 20 03/15/25 06:47 BP 134/91 H 03/15/25 06:47 Pulse Ox 99 03/15/25 06:47 O2 Del Method Room Air 03/15/25 06:47 Allergies Allergy/AdvReac Type Severity Reaction Status Date / Time No Known Allergies Allergy Verified 03/15/25 06:44 Home Medications ?Medication ?Instructions ?Recorded ?Confirmed ?Type atorvastatin 20 mg tablet (Lipitor) 20 mg PO DAILY #90 tabs 03/12/24 03/15/25 Rx hydroxyzine HCl 50 mg tablet 50 mg PO BID PRN anxiety #60 tabs 03/12/24 02/24/25 Rx lisinopril 20 mg tablet 40 mg (2 x 20 mg) PO QAM #90 tabs 03/12/24 03/15/25 Rx metformin 500 mg tablet,extended 500 mg PO BID #90 tab s 03/12/24 03/15/25 Rx release 24 hr amlodipine 5 mg tablet 5 mg PO DAILY 02/24/2503/15 History Laboratory Tests 03/15/25 06:56 POC Capillary Glucose 109 H mg/dl (65-105) Patient hx anesthesia problems: none Family hx anesthesia problems: none Results Review: All pre-operative results and documents have been reviewed as part of the pre- operative evaluation. [facility] Past Medical History Medical History History of hypertension Social History Social History Smoking status: Never smoker Alcohol intake: never Substance use: never Substance use type: does not use Lack of Transportation: No Lack of Food: Never True Current Housing: I Have Housing Concerned About Future Housing: No Difficulty Paying Gas/Electric Bills: No Difficulty Paying for Meds: No Currently Unemployed: No Education: Bachelor's Degree Difficulty w/ Childcare or Family Care: No Living arrangements: alone Spiritual care concerns: No Anes - Eval Final PreProcedure Day of Procedure 03/15/25 07:15 Patient weight: obese Heart: regular rate and rhythm Lungs: clear to auscultation Airway: Mallampati scale class III Neurological: alert and oriented Last oral intake: >/= 8 hours ASA classification: III Emergent: no Anesthetic plan: proceed Anesthesia type and monitoring: general GIVS and standard monitoring Results Review: All pre-operative results and documents have been reviewed as part of the pre- operative evaluation. Informed Consent: The patient's anesthetic plan and its attendant risks and benefits were discussed with the patient/family/POA. Questions were solicited and answers provided to the satisfaction of the patient/family/POA.
--- NOTE | 2025-03-15 08:12 | PM.HPGS ---
History of Present Illness History of Present Illness Consent: Risks, benefits, and alternatives have been discussed and questions answered. Patient agrees to proceed with procedure. Chief complaint: screening Narrative: Steven Elmore is a 44 year old male here for first screening colonoscopy Review of Systems Review of Systems: All systems reviewed & are unremarkable except as noted in HPI and below PMFSH Past Medical History Medical History (Updated 03/15/25 @ 08:26 by Moody Patel MD) Colon cancer screening History of hypertension Social History Social History Smoking status: Never smoker Alcohol intake: never Substance use: never Substance use type: does not use Lack of Transportation: No Lack of Food: Never True Current Housing: I Have Housing Concerned About Future Housing: No Difficulty Paying Gas/Electric Bills: No Difficulty Paying for Meds: No Currently Unemployed: No Education: Bachelor's Degree Difficulty w/ Childcare or Family Care: No Living arrangements: alone Spiritual care concerns: No Meds Home Medications and Allergies Home Medications ?Medication ?Instructions ?Recorded ?Confirmed ?Type atorvastatin 20 mg tablet (Lipitor) 20 mg PO DAILY #90 tabs 03/12/24 03/15/25 Rx hydroxyzine HCl 50 mg tablet 50 mg PO BID PRN anxiety #60 tabs 03/12/24 02/24/25 Rx lisinopril 20 mg tablet 40 mg (2 x 20 mg) PO QAM #90 tabs 03/12/24 03/15/25 Rx metformin 500 mg tablet,extended 500 mg PO BID #90 tabs 03/12/24 03/15/25 Rx release 24 hr amlodipine 5 mg tablet 5 mg PO DAILY 02/24/25 03/15/25 History Allergies Allergy/AdvReac Type Severity Reaction Status Date / Time No Known Allergies Allergy Verified 03/15/25 06:44 Vital Signs Vital Signs - 24 hr 03/15/25 06:47 Temperature 97.6 F Pulse Rate 78 Respiratory Rate 20 Blood Pressure 134/91 H Pulse Oximetry 99 Oxygen Delivery Room Air Exam Const: General: comfortable and no acute distress HENMT: Face/Nose/Sinus: Normal nares present Eyes: General: appearance normal, both eyes and all related structures Neck: Neck: no JVD Resp: Auscultation: clear to auscultation bilaterally Cardio: Rate: regular rate Rhythm: regular rhythm GI: Inspection: non-distended GI Palp: Yes Soft to palpation Skin: General skin exam: normal color Extrem: General: normal to inspection Psych: Mental Status: mental status grossly normal Assessment and Plan Assessment and plan (1) Colon cancer screening: Code(s): Z12.11 - Encounter for screening for malignant neoplasm of colon Status: Acute Assessment and Plan: colonoscopy
--- NOTE | 2025-03-15 08:22 | S_PTH ---
PATIENT: Steven Elmore LOC: [facility]#:[id number] AGE/SX: 44/M ROOM: RE03/15/[address]: Moody Patel MD : 1980 BED: DIS: 03/15/2025 SPEC #: [id number] RECD: 03/15/25 10:03 STATUS: [place] REOzzie #: [id number] CASE: 03/15/25 08:[address]: Moody Patel DEPT: [facility] Surgical RECD BY: Hermila Wakefield ENTERED: 03/15/25 10:03 SP TYPE: Surgical OTHR DR: Timo AceMD Tissues: A - Colon Polypectomy Procedures: Hematoxylin and Eosin Stain Gross and Microscopic Level 4
[2025-03-15 08:24] VITALS: BP 117/74; PULSE 84; RESP 18; O2SAT 96
[2025-03-15 08:34] VITALS: BP 126/85; PULSE 88; RESP 18; O2SAT 98
[2025-03-15 08:44] VITALS: BP 133/81; PULSE 70; RESP 18; O2SAT 98
== END 2025-03-15 09:08 | disposition home or self-care (01) ==
PROVIDERS: PCP Internal Medicine; Visit Provider Internal Medicine Gastroenterology
PROC: 0DJD8ZZ Inspection of Lower Intestinal Tract, Via Natural or Artificial Opening Endoscopic (ICD-10-PCS; CPT 45378; principal; 2025-03-15 08:00)
DX: Z12.11 Encounter for screening for malignant neoplasm of colon (principal); D12.5 Benign neoplasm of sigmoid colon; I10 Essential (primary) hypertension
CPT/HCPCS: 45385; 82948; 88305; J2704; J7120